=== PATIENT | female | born 1975 | race Caucasian/White ===

== ENCOUNTER 2016-02-24 17:41 | Emergency (ER) | payer BC, OTHER ==
[~2016-02-24] VITALS: Ht 154.9 cm; Wt 68.0 kg
[~2016-02-24 17:41] MED LIST: BUTALB-APAP-CA1 EACH PO; IMITREX100 MG PO; ZOFRAN ODT4 MG PO; ZOLOFT25 MG PO
[2016-02-24 17:43] VITALS: BP 132/95
[2016-02-24] MEDS ORDERED: HYDROCODONE-AP1 EAC6 PO (17:50)
[2016-02-24] MEDS ORDERED: TRAMADOL 50 MG50 MG PO (17:51)
[2016-02-24] MEDS ORDERED: NEURONTIN 300300 M1 PO (17:51)
[2016-02-24] MEDS ORDERED: PHENERGAN 25 MG25 M1 PO (17:52)
[2016-02-24] MEDS ORDERED: MEDROLDOSEPACK PO (18:27)
== END 2016-02-24 18:35 | disposition home or self-care (01) ==
LOC: ER 17:41
DX: G62.9 Polyneuropathy, unspecified (principal); R29.2 Abnormal reflex; M79.605 Pain in left leg; M79.604 Pain in right leg; F10.99 Alcohol use, unspecified with unspecified alcohol-induced disorder; Z98.890 Other specified postprocedural states; Z88.2 Allergy status to sulfonamides